=== PATIENT | female | born 1975 | race Caucasian/White ===

== ENCOUNTER 2023-02-04 23:32 | Emergency (ER) | payer SELFPAY ==
[~2023-02-04] VITALS: Ht 160 cm; Wt 59.0 kg
[2023-02-05] MEDS ORDERED: ONDANSETRON 4 MG/2 ML VIAL ONE (00:38)
[2023-02-05] MEDS ORDERED: LORAZEPAM 2 MG/1 ML VIAL ONE ×2 (00:39→03:21)
[2023-02-05] MEDS: ONDANSETRON 4 MG/2 ML VIAL IV ONE (00:45)
[2023-02-05] MEDS: IV D5/ 0.9% NACL 1,000 ML IV ONE ×2 (00:46→03:30)
[2023-02-05] MEDS: LORAZEPAM 2 MG/1 ML VIAL IV ONE ×2 (00:46→03:30)
[2023-02-05 00:54] LABS: BASOPHILS % (AUTO) 0.6 % (0.0-2.0); EOSINOPHILS % (AUTO) 0.3 % (0.0-7.0); HEMATOCRIT 41.1 % (31.2-41.9); HEMOGLOBIN 13.7 g/dL (10.9-14.3); LYMPHOCYTES # (AUTO) 0.9 K/uL (0.8-4.8); LYMPHOCYTES % (AUTO) 12.6 % (20.5-51.5); MEAN CORPUSCULAR HEMOGLOBIN 31.1 uug (24.7-32.8); MEAN CORPUSCULAR HGB CONC 33 g/dL (32.3-35.6); MEAN CORPUSCULAR VOLUME 93.1 fL (75.5-95.3); MONOCYTES # (AUTO) 0.2 K/uL (0.1-1.30); MONOCYTES % (AUTO) 2.5 % (0.0-11.0); NEUTROPHILS # (AUTO) 6.3 K/uL (1.8-8.9); PLATELET COUNT (AUTO) 176 K/uL (179-408); RED BLOOD CELL COUNT(AUTO) 4.41 MIL/uL (3.63-4.92); RED CELL DISTRIBUTION WIDTH 13.3 % (12.3-17.7); WHITE BLOOD COUNT (AUTO) 7.5 K/uL (3.8-11.8)
[2023-02-05 01:03] LABS: CALCIUM 8.4 mg/dL (8.5-10.1); CARBON DIOXIDE 29 mmol/L (21-32); CHLORIDE 100 mmol/L (98-107); CREATININE 0.7 mg/dL (0.6-1.3); GLUCOSE 114 mg/dL (74-106); SODIUM SERUM 140 mmol/L (136-145); UREA NITROGEN, BLOOD 11 mg/dL (7-18)
[2023-02-05 01:08] LABS: PREGNANCY TEST SERUM QUAN < 1 miul/L (0-6)
[2023-02-05 01:09] LABS: ALANINE AMINOTRANSFERASE 95 U/L (14-59); ALBUMIN 3.5 g/dL (3.4-5.0); ALKALINE PHOSPHATASE 66 U/L (50-136); ASPARTATE AMINOTRANSFERASE 139 U/L (15-37); BILIRUBIN,DIRECT 0.1 mg/dL (0.0-0.2); BILIRUBIN,TOTAL 0.3 mg/dL (0.2-1.0); LIPASE 48 U/L (16-77)
[2023-02-05] MEDS ORDERED: diphenhydrAMINE 50 MG/1 ML VIAL ONE (03:23)
[2023-02-05] MEDS ORDERED: METOCLOPRAMIDE HCL 10 MG/2 ML VIAL ONE (03:23)
[2023-02-05] MEDS: diphenhydrAMINE 50 MG/1 ML VIAL IV ONE (03:30)
[2023-02-05] MEDS: METOCLOPRAMIDE HCL 10 MG/2 ML VIAL IV ONE (03:30)
[2023-02-05] MEDS ORDERED: ONDA4TAB11 PO (04:24)
[2023-02-05 04:43] VITALS: BP 129/89; O2SAT 98
== END 2023-02-05 04:44 | disposition home or self-care (01) ==
LOC: ER 23:43
DX: E86.0 Dehydration (principal); F10.229 Alcohol dependence with intoxication, unspecified; F10.239 Alcohol dependence with withdrawal, unspecified; R11.0 Nausea; R10.2 Pelvic and perineal pain; Y90.9 Presence of alcohol in blood, level not specified
CPT/HCPCS: 36415; 83690; 85025; 93005; A4606; A4663; J1200; J2060; J2405; J2765; J7042